=== PATIENT | male | born 1980 | race Caucasian/White ===

== ENCOUNTER → 2017-01-07 | Outpatient (CLI) | payer OTHER ==
--- NOTE | 2017-01-07 12:51 | US ---
EXAMINATION TYPE: US groin extremity LT DATE OF EXAM: 01/07/2017 12:28 PM COMPARISON: NONE CLINICAL HISTORY: R10.30 Abd Pain. There does appear to be an inguinal hernia in the left groin. Bowel peristalses up within the defect. During real-time scanning focal area of defect is felt present with peristalsing bowel, less well see n on images saved. IMPRESSION: Possible bowel containing left inguinal hernia seen better during real-time scanning bet ter than still images saved. Consider CT confirmation.
--- NOTE | 2017-01-07 12:53 | US ---
EXAMINATION TYPE: US scrotum with doppler. Grayscale and color Doppler Duplex imaging performed of t he scrotum. DATE OF EXAM: 01/07/2017 10:25 AM COMPARISON: Prior scrotal ultrasound June 11, 2012 CLINICAL HISTORY: N 452 orchitis, left testicular pain EXAM MEASUREMENTS: TESTICLES: Right Testicle: 4.0 x 3.0 x 2.7 cm Left Testicle: 4.9 x 2.0 x 3.2 cm EPIDIDYMIS HEAD: Right Epididymis: 0.9 cm Left Epididymis: 0.8 cm Doppler performed to assess for testicular vascularity; good bilateral color flow and waveforms are s een. Right epididymis cyst measuring 0.6 x 0.9 x 0.6 is felt stable. Presence of hydroceles: no Presence of varicoceles: no Comparison images show no suspicious skin thickening or asymmetric blood flow to either testicle. IMPRESSION: No suspicious asymmetrically decreased or increased blood flow to left testicle is seen.
== END ==
LOC: RADUSWWP 06:57
PROVIDERS: ATTEND Family Medicine
DX: N45.2 Orchitis (principal); R10.30 Lower abdominal pain, unspecified
CPT/HCPCS: 76870; 93975

== ENCOUNTER → 2020-05-01 | Outpatient (CLI) | payer BC, OTHER | END | disposition home or self-care (01) | LOC: LABWHC1 11:40 | PROVIDERS: ATTEND Emergency Medicine | DX: Z20.828 Contact with and (suspected) exposure to other viral communicable diseases (principal) | CPT/HCPCS: U0003; C9803 ==

== ENCOUNTER → 2022-06-18 | Outpatient (CLI) | payer BC ==
--- NOTE | 2022-06-18 15:53 | US ---
EXAMINATION TYPE: US abdomen comp/pelvis limited DATE OF EXAM: 06/18/2022 COMPARISON: NONE CLINICAL HISTORY: R10.9 UNSPECIFIED ABDOMINAL PAIN. Pain within the abdomen. Hematuria. EXAM MEASUREMENTS: Liver Length: 15.0 cm Gallbladder Wall: 0.30 cm CBD: Not visualized Spleen: 11.9 cm Right Kidney: 11.5 x 5.4 x 4.6 cm Left Kidney: 12.0 x 6.2 x 5.2 cm Post Void Residual: No fluid visualized Pancreas: Limited due to gas. Liver: No evident mass or dilated ducts. Gallbladder: Hyperechoic area seen within the gallbladder that appears to be attached to the gallbla dder wall: 0.5 x 0.4 x 0.3 cm. CBD: Not visualized. Spleen: Appears wnl Right Kidney: No hydronephrosis or masses seen Left Kidney: No hydronephrosis or masses seen Upper IVC: Appears wnl Abd Aorta: Proximal segment appears ectatic. Bladder: Appears anechoic. Bilateral Jets Seen Left jet seen. Right jet not seen during exam. Normal Post Void Residual (normal less than 50ml) Yes, no fluid seen. IMPRESSION: There are some limitations to the exam. No abnormality evident to account for patient's s ymptoms.
== END | disposition home or self-care (01) ==
LOC: RADUSWWP 12:17
PROVIDERS: ATTEND Internal Medicine
DX: R10.9 Unspecified abdominal pain (principal)
CPT/HCPCS: 76700; 76857

== ENCOUNTER → 2022-07-05 | Outpatient (CLI) | payer BC ==
--- NOTE | 2022-07-07 14:57 | CT ---
EXAMINATION TYPE: CT abdomen w con DATE OF EXAM: 07/05/2022 COMPARISON: Ultrasound 06/18/2022 INDICATION: Cholesterolosis of gallbladder. Abdomen pain. Vomiting DLP: 1187 mGycm, Automated exposure control for dose reduction was used. CONTRAST: 100cc mL of Isovue 300. Study performed with Oral Contrast TECHNIQUE: Axial images were obtained from above the diaphragm to the pubic rami in the axial plane a t 5 mm thick sections. Reconstructed images are reviewed on the computer in the coronal plane. FINDINGS: Limited CT sections are obtained the lung bases. The lung bases are clear. CT ABDOMEN: Liver: There is a subtle hypodensity within the superior lateral right lobe liver measuring 0.4 cm. A small cyst too small to classify may be present. Spleen: Normal Pancreas: Normal Adrenal glands: The adrenal glands are normal. Gallbladder: Normal. Cholelithiasis is not identified by CT. CT is less sensitive than ultrasound. Kidneys: No masses are evident. No hydronephrosis is present. There is a 1.2 cm cyst superior pole right kidney. Delayed images were obtained through the kidneys, which remain unremarkable. Aorta: Normal Inferior vena cava: Normal. CT PELVIS: Some mild wall thickening of the proximal descending colon is not excluded. No oral contrast is prese nt at this level for closer evaluation. Scattered diverticular changes are within the sigmoid colon. There are loops of bowel which are incompletely distended or lack oral contrast limiting their charles luation. Appendix: Normal as visualized Urinary bladder: Normal. Genitourinary structures: Prostate appears normal. Osseous structures: No suspicious lytic or sclerotic lesions. IMPRESSIONS: 1. Clinical consideration for mild colitis of the proximal recommended. 2. No suspicious abnormality identified within the gallbladder. CT is for gallbladder evaluation. 3. Small cyst superior pole right kidney
== END | disposition home or self-care (01) ==
LOC: RADCTMAIN 16:58
PROVIDERS: ATTEND Internal Medicine
DX: K82.4 Cholesterolosis of gallbladder (principal); N28.1 Cyst of kidney, acquired
CPT/HCPCS: 74160; Q9967 ×2

== ENCOUNTER → 2022-12-12 | Outpatient (CLI) | payer BC ==
[2022-12-13 03:47] LABS: Basophils # (A) 0.06 X 10*3/uL (0.00-0.10); Basophils % (A) 0.7 %; Eosinophils # (A) 0.15 X 10*3/uL (0.04-0.35); Eosinophils % (A) 1.6 %; HCT 45.8 % (39.6-50.0); HGB 15.1 g/dL (13.0-17.0); Immature Grans, Automated 0.2 %; Lymphocytes # (A) 2.67 X 10*3/uL (0.90-5.00); Lymphocytes % (A) 29.2 %; MCH 30.3 pg (27.0-32.0); MCV 91.8 fL (80.0-97.0); Mean Platelet Volume 11.3 fL (9.5-12.2); Monocytes # (A) 0.55 X 10*3/uL (0.20-1.00); NRBC Per 100 WBC 0 /100 WBCS (0.0-0.0); Neutrophils # (A) 5.68 X 10*3/uL (1.80-7.70); Neutrophils % (A) 62.3 %; Platelet Count 250 X 10*3/uL (140-440); RBC 4.99 X 10*6/uL (4.40-5.60); RDW 14.3 % (11.5-14.5); WBC 9.13 X 10*3/uL (4.50-10.00)
== END | disposition home or self-care (01) ==
LOC: LABPAT 15:55
PROVIDERS: ATTEND Orthopaedic Surgery
DX: Z01.812 Encounter for preprocedural laboratory examination (principal); M23.91 Unspecified internal derangement of right knee
CPT/HCPCS: 85025

== ENCOUNTER 2022-12-18 08:07 | Day surgery (SDC) | payer BC ==
[2022-12-12 15:29] VITALS: BMI 27.1
--- NOTE | 2022-12-17 13:00 | HP ---
HISTORY AND PHYSICAL DATE OF SURGERY: 12/18/2022 HISTORY OF PRESENT ILLNESS: Kimberly is a 42-year-old gentleman seen with progressive right knee pain. We discussed options for treatment. He elected to proceed with right knee arthroscopy. Consent regarding the procedure was obtained. PAST MEDICAL HISTORY: Hyperlipidemia. PAST SURGICAL HISTORY: Noncontributory. DAILY MEDICATIONS: Prilosec, rosuvastatin. ALLERGIES: None reported. SOCIAL HISTORY: Smokes cigarettes. PHYSICAL EVALUATION OF THE RIGHT KNEE: Range of motion is 0-100 degrees. There is a [id number] effusion present. Tenderness along the medial joint line. Positive medial Saritha's. Ligaments are stable. Hip rotation without pain. Distal neurovascular exam is intact. RADIOGRAPHS: Right knee radiographs revealed no osseous abnormality. MRI right knee revealed a complex medial meniscal tear. IMPRESSION: Internal derangement of right knee with medial meniscal tear. PLAN: Right knee arthroscopy with partial medial meniscectomy and debridement. MMODL / IJN: [id number] /
[~2022-12-18 08:07] MED LIST: DEXAMETHASONE SOD PHOSPHATE 4 MG/ML 1 ML VIAL IV ONE; LACTATED RINGERS 1,000 ML IV SCH; LIDOCAINE 1% (10MG/ML) FOR IV START INTRADERMA PRN; MIDAZOLAM 2 MG/2 ML VIAL IV PRN; ONDANSETRON 4 MG/2 ML VIAL IVP ONE
[2022-12-18] MEDS ORDERED: LIDOCAINE 1% (10MG/ML) FOR IV START INTRADERMA ONE (08:53)
[2022-12-18] MEDS ORDERED: ONDANSETRON 4 MG/2 ML VIAL ONE (08:55)
[2022-12-18] MEDS ORDERED: MIDAZOLAM 2 MG/2 ML VIAL ONE (09:17)
[2022-12-18] MEDS ORDERED: LIDOCAINE 4% LTA KIT (4 ML) TOPICAL ONE (09:17)
[2022-12-18] MEDS ORDERED: PROPOFOL 10 MG/ML 20 ML VIAL IV ONE (09:17)
[2022-12-18] MEDS ORDERED: fentaNYL (PF) 50 MCG/ML 2 ML AMP ONE (09:17)
[2022-12-18] MEDS ORDERED: SUCCINYLCHOLINE CHLORIDE 200 MG/10 ML VIAL IV ONE (09:17)
[2022-12-18] MEDS ORDERED: BUPIVACAIN-EPI 0.25%-1:200,000 30 ML VIAL INTRAARTIC ONE ×2 (09:47→10:02)
[2022-12-18 10:17] VITALS: TEMP 97.3
--- NOTE | 2022-12-18 10:17 | P.OP ---
Date of Procedure: 12/18/22 Preoperative Diagnosis: Internal derangement right knee Postoperative Diagnosis: 1. Tear medial meniscus right knee 2. Reactive synovitis medial, lateral and suprapatellar compartments right knee Procedure(s) Performed: 1. Arthroscopic partial medial meniscectomy right knee 2. Arthroscopic partial synovectomy medial, lateral and suprapatellar compartments right knee Anesthesia: KORINA, local Surgeon: Nnamdi Leary Estimated Blood Loss (ml): 5 Pathology: none sent Condition: stable Disposition: PACU Indications for Procedure: 42-year-old gentleman seen with progressive right knee pain. After having treatment options discussed, he elected to proceed with arthroscopy. Operative Findings: See description of procedure Description of Procedure: Patient was taken to the operative suite. Patient underwent a general a nesthetic by the department of anesthesia. Patient was given preoperative antibiotics. The right lower extremity was placed in a well-padded arthroscopic leg brownlee. The right leg was prepped and draped in the normal sterile orthopedic fashion. A lateral parapatellar and suprapatellar incision was made. Trochars were inserted. Arthroscopy was initiated. Suprapatellar pouch revealed diffuse thick reactive synovitis. The patellofemoral joint appeared to articulate congruently. There was no significant chondromalacia present. The scope was guided into the medial gutter. No loose bodies or plica were identified. The scope was then guided into the medial compartment. A medial parapatellar incision was made. Trocar inserted followed by probe. There was a complex tear involving the posterior horn of the medial meniscus which is extension into the midbody area. There were no significant chondromalacia changes of the medial compartment. There was some thick reactive synovitis a nteriorly. I performed a partial medial meniscectomy getting down to stable meniscal tissue. I performed a partial synovectomy decompressing the reactive synovitis. The residual meniscus was probed and was found to be stable. There was good decompression of the synovitis. Scope and probe were then guided into the intercondylar notch. Cruciates were identified, probed and found to be stable. The scope and probe were then guided into lateral compartment. Lateral meniscus was probed and was found to be stable. There was no significant chondromalacia present. There was some reactive synovitis anteriorly. I introduced a motorized shaver and I performed a partial synovectomy. The shaver was removed. There was good decompression of the synovitis. The scope was in guided back into the suprapatellar compartment. I introduced a motorized shaver into the suprapatellar compartment. I debrided some piecemeal fragments of meniscus that I encountered. I performed a partial synovectomy. Shaver was removed. There was good decompression of the synovitis. I now took one more look around the entire knee, no residual debris. Instruments were now removed from the joint. The joint was infiltrated with .25% Marcaine. Steri-Strips were applied to the portal sites. Sterile dressings were applied. The patient was placed into a ELLA hose. No tourniquet was utilized. The patient was awakened, transferred to a bed and taken to recovery stable satisfactory condition.
[2022-12-18] MEDS: HYDROmorphone 0.5 MG/0.5 ML SYRINGE IVP PRN ×4 (10:18→11:02)
[2022-12-18 10:38] VITALS: RESP 16
[2022-12-18 11:54] VITALS: BP 122/68; PULSE 54
== END 2022-12-18 12:14 | disposition home or self-care (01) ==
LOC: OR 08:07
PROVIDERS: ATTEND Orthopaedic Surgery
DX: S83.231A Complex tear of medial meniscus, current injury, right knee, initial encounter (principal); M65.861 Other synovitis and tenosynovitis, right lower leg; E78.5 Hyperlipidemia, unspecified; F17.210 Nicotine dependence, cigarettes, uncomplicated; F12.90 Cannabis use, unspecified, uncomplicated; K21.9 Gastro-esophageal reflux disease without esophagitis; Z79.899 Other long term (current) drug therapy
CPT/HCPCS: 29881; 29876; J2250; J0330; J1100; J0690; J2405; J3010; J2704; J1170

== ENCOUNTER → 2024-12-20 | Outpatient (CLI) | payer BC ==
--- NOTE | 2024-12-20 15:17 | CT ---
EXAMINATION TYPE: CT abdomen pelvis w con DATE OF EXAM: 12/20/2024 2:55 PM COMPARISON: 07/05/2022 CLINICAL INDICATION: Male, 44 years old with history of R10.9 ABDOMINAL PAIN, LOWER ABDOMINAL GROIN P AIN THAT RADIATES INTO THE TESTICLES TECHNIQUE: Axial images were obtained from above the diaphragm to the pubic rami in the axial plane a t 5 mm thick sections. Reconstructed images are reviewed on the computer in the coronal plane. CONTRAST: 100ml mL of Isovue 300. Study performed with Oral Contrast DLP: 822.40 mGycm, Automated exposure control for dose reduction was used. FINDINGS: Limited CT sections are obtained the lung bases. Lung bases are clear.. CT ABDOMEN: Liver: Normal Spleen: Normal Pancreas: Normal Adrenal glands: The adrenal glands are normal. Gallbladder: Normal Kidneys: No masses are evident. No hydronephrosis is present. There is a 1.1 cm cortical renal cyst superior pole right kidney. Delayed images were obtained through the kidneys, which remain unremark able. Aorta: Normal Inferior vena cava: Normal. CT PELVIS: Inguinal regions appear normal. No inguinal adenopathy evident. Loops of bowel within the abdomen and pelvis are normal. Mild diverticulosis without evidence of acu te diverticulitis is present. No adjacent inflammatory changes evident. Sigmoid colon is not distende d with oral contrast. There are loops of bowel which are incompletely distended or lack oral contra st limiting their evaluation. Appendix: Normal as visualized. Urinary bladder: Normal. Genitourinary structures: The prostate is normal Osseous structures: No suspicious lytic or sclerotic lesions. IMPRESSION: 1. Diverticulosis without acute diverticulitis. Follow-up can be performed as clinically indicated. [facility], , 12/20/2024 3:15 PM
== END | disposition home or self-care (01) ==
LOC: RADCTMAIN 13:01
PROVIDERS: ATTEND Internal Medicine
DX: K57.30 Diverticulosis of large intestine without perforation or abscess without bleeding (principal)
CPT/HCPCS: 74177; Q9967